=== PATIENT | male | born 1985 | race Two or more races ===

== ENCOUNTER 2020-11-29 15:14 | Emergency (ER) | payer OTHER ==
[~2020-11-29] VITALS: Ht 157.5 cm; Wt 49.9 kg
[2020-11-29] MEDS ORDERED: AMOXICILLIN500 M1 PO (16:52)
[2020-11-29] MEDS ORDERED: INTESTINEX680 M1 PO (16:52)
== END 2020-11-29 16:56 | disposition home or self-care (01) ==
LOC: ER 15:14
DX: S61.022A Laceration with foreign body of left thumb without damage to nail, initial encounter (principal); W26.0XXA Contact with knife, initial encounter; Y93.G1 Activity, food preparation and clean up; Y92.010 Kitchen of single-family (private) house as the place of occurrence of the external cause; Y99.8 Other external cause status